=== PATIENT | male | born 1990 | race Caucasian/White ===

== ENCOUNTER 2019-05-05 13:52 | Emergency (ER) | payer SELFPAY ==
[~2019-05-05] VITALS: Ht 172.7 cm; Wt 71.1 kg
[2019-05-05] MEDS ORDERED: AMOXICILLIN/POTASSIUM CLAVULANATE 500/125MG TAB PO ONE (15:00)
[2019-05-05 16:21] VITALS: BP 140/68
== END 2019-05-06 07:58 | disposition home or self-care (01) ==
LOC: ER 18:57
DX: H92.01 Otalgia, right ear (principal); F12.10 Cannabis abuse, uncomplicated
CPT/HCPCS: 99283